=== PATIENT | female | born 1960 ===

== ENCOUNTER 2024-07-09 10:15 | Inpatient (IN) | payer OTHER ==
[~2024-07-09] VITALS: Ht 157.5 cm; Wt 70.3 kg
[2024-07-09] MEDS ORDERED: AVAPRO150 MG PO (11:45)
[2024-07-09] MEDS ORDERED: ADULT LOW DOSE81 M1 PO (11:45)
[2024-07-09] MEDS ORDERED: TOPROL XL50 M1 (11:45)
[2024-07-09] MEDS ORDERED: CRESTOR40 MG PO (11:45)
[2024-07-09 11:46] VITALS: BP 114/67
[2024-07-09] MEDS ORDERED: ZETIA10 MG PO (11:46)
[2024-07-09 13:50] LABS: RH NEGATIVE
[2024-07-17] MEDS ORDERED: HEMOSTATIC MATRIX WITH THROMBIN KIT TOP ONE (08:45)
[2024-07-17] MEDS ORDERED: SURGIFLO APPLICATOR 1 EACH APPL TOP ONE (08:45)
[2024-07-17] MEDS ORDERED: CEFAZOLIN SODIUM 1,000 MG VIAL IV ONE (08:45)
[2024-07-17] MEDS ORDERED: METRONIDAZOLE/SODIUM CHLORIDE 500 MG/100 ML PIGGYBACK IV ONE (08:45)
[2024-07-17] MEDS ORDERED: SUGAMMADEX SODIUM 200 MG/2 ML VIAL IV ONE (09:06)
[2024-07-17] MEDS ORDERED: RINGERS SOLUTION,LACTATED 1,000 ML IV SCH (09:30)
[2024-07-17] MEDS ORDERED: OxyCODONE HCL 5 MG TABLET (ROXICODONE) PO PRN (09:30)
[2024-07-17] MEDS ORDERED: ONDANSETRON HCL 2 MG/ML VIAL IV PRN (09:30)
[2024-07-17] MEDS ORDERED: MORPHINE SULFATE 4 MG/ML CARTRIDGE IV PRN (09:30)
[2024-07-17] MEDS ORDERED: KETOROLAC TROMETHAMINE 30 MG VIAL ONE (11:56)
[2024-07-17] MEDS ORDERED: KETOROLAC TROMETHAMINE 30 MG VIAL IM SCH (12:00)
[2024-07-17] MEDS ORDERED: SIMETHICONE 125 MG CAPSULE PO SCH (13:00)
[2024-07-17 13:01] LABS: HEMATOCRIT 41.9 % (36.0-45.00); HEMOGLOBIN 14.4 g/dL (12.0-15.00); MEAN CELL VOLUME 97.1 fL (80.00-100.00); MEAN CORPUSCULAR HEMOGLOBIN 33.3 pg (27.00-32.0); MEAN CORPUSCULAR HGB CONC 34.3 g/dl (32.0-36.0); PLATELET COUNT 169 K/uL (150-450); RED BLOOD COUNT 4.31 M/uL (4.00-6.00)
[2024-07-17 14:01] LABS: ALBUMIN 3.4 gm/dL (3.4-5.0); CALCIUM 8.8 mg/dL (8.5-10.1); CREATININE SERUM 0.78 mg/dL (0.55-1.02); GFR 73.89; POTASSIUM 4.5 mEq/L (3.5-5.1)
[2024-07-17 14:02] VITALS: BP 114/67
[2024-07-17 14:03] VITALS: BP 114/67; O2SAT 96
[2024-07-17 16:00] VITALS: BP 98/56; O2SAT 100
[2024-07-17] MEDS ORDERED: CEFAZOLIN SODIUM 1,000 MG VIAL IV SCH (17:00)
[2024-07-17] MEDS ORDERED: GABAPENTIN 300 MG CAPSULE PO SCH (17:00)
[2024-07-17] MEDS ORDERED: DOCUSATE SODIUM 100MG CAP PO SCH (21:00)
[2024-07-17] MEDS ORDERED: FAMOTIDINE/PF 20 MG/2 ML VIAL IV PUSH SCH (21:00)
[2024-07-18 00:26] VITALS: BP 118/67; O2SAT 98
[2024-07-18 06:56] LABS: HEMATOCRIT 38.6 % (36.0-45.00); HEMOGLOBIN 13.1 g/dL (12.0-15.00); MEAN CELL VOLUME 97.6 fL (80.00-100.00); MEAN CORPUSCULAR HEMOGLOBIN 33.1 pg (27.00-32.0); MEAN CORPUSCULAR HGB CONC 33.9 g/dl (32.0-36.0); PLATELET COUNT 132 K/uL (150-450); RED BLOOD COUNT 3.96 M/uL (4.00-6.00)
[2024-07-18 07:36] LABS: ALBUMIN 2.8 gm/dL (3.4-5.0); CALCIUM 8.5 mg/dL (8.5-10.1); CREATININE SERUM 0.68 mg/dL (0.55-1.02); GFR 86.57; PHOSPHOROUS 2.6 mg/dL (2.5-4.9); POTASSIUM 4.04 mEq/L (3.5-5.1)
[2024-07-18 08:00] VITALS: BP 104/62; O2SAT 95
[2024-07-18] MEDS ORDERED: ENOXAPARIN SODIUM 40 MG/0.4 ML SYRINGE SUBCUTANEO SCH (09:00)
== END 2024-07-18 10:44 | disposition home or self-care (01) | DRG 743 ==
LOC: O/R 07-17 05:13 → OB/GYN 07-17 05:13 → SURH 07-17 07:00 → OB/GYN 07-17 12:21
PROVIDERS: ADMIT Obstetrics & Gynecology Gynecologic Oncology; ATTEND Obstetrics & Gynecology Gynecologic Oncology
PROC: 07BC4ZZ Excision of Pelvis Lymphatic, Percutaneous Endoscopic Approach (ICD-10-PCS; 2024-07-17)
PROC: 0UT74ZZ Resection of Bilateral Fallopian Tubes, Percutaneous Endoscopic Approach (ICD-10-PCS; 2024-07-17)
PROC: 0UT24ZZ Resection of Bilateral Ovaries, Percutaneous Endoscopic Approach (ICD-10-PCS; 2024-07-17)
PROC: 8E0W4CZ Robotic Assisted Procedure of Trunk Region, Percutaneous Endoscopic Approach (ICD-10-PCS; 2024-07-17)
PROC: 0UT94ZZ Resection of Uterus, Percutaneous Endoscopic Approach (ICD-10-PCS; principal; 2024-07-17 07:00)
DX: N85.02 Endometrial intraepithelial neoplasia [EIN] (principal); D36.0 Benign neoplasm of lymph nodes
CPT/HCPCS: 58548; 58661; S2900